=== PATIENT | male | born 1965 | race Two or more races ===

== ENCOUNTER 2023-12-17 11:33 | Inpatient (IN) | payer MEDICAID, OTHER ==
[~2023-12-17] VITALS: Ht 167.6 cm; Wt 98.3 kg
[2023-12-17 12:14] LABS: Urine Bacteria None Seen /hpf (None Seen)
[2023-12-17 12:32] LABS: Basophils # (auto) 0.1 10 ^3/uL (0-0.2); Basophils % (auto) 0.7 % (0.0-2.0); Eosinophils # (auto) 0 10 ^3/uL (0-0.8); Eosinophils % (auto) 0.4 % (0.0-7.0); Hematocrit 51.3 % (41.0-53.0); Hemoglobin 17.5 g/dL (13.5-17.5); Lymphocytes # (auto) 2.2 10 ^3/uL (0.4-5.4); Mean Corpuscular Hemoglobin 31.8 pg (28.0-32.0); Mean Corpuscular Hgb Conc. 34.2 g/dL (32.0-36.0); Mean Corpuscular Volume 93.1 fL (80.0-100.0); Monocytes # (auto) 0.5 10 ^3/uL (0-1.3); Monocytes % (auto) 4.9 % (0.0-12.0); Neutrophils # (auto) 7.3 10 ^3/uL (1.6-8.6); Red Blood Cells 5.51 10^6/uL (4.5-5.90); Red Cell Distribution Width 14.3 % (11.8-14.3); White Blood Cell 10.2 10^3/uL (4.4-10.8)
[2023-12-17 12:42] LABS: Urine Blood Negative /uL (Negative); Urine Clarity Clear (Clear); Urine Color Colorless (Yellow); Urine Protein, UAD Negative (Negative); Urine Specific Gravity 1.002 (1.001-1.035); Urine Urobilinogen Normal (Negative); Urine WBC <1 /hpf (0 - 3); Urine pH 5.5 (5.0-9.0)
[2023-12-17 12:45] LABS: INR 0.98 (0.9-1.15); Partial Thromboplastin Time 28.4 SEC (24.5-34.5); Prothrombin Time 10.4 sec (9.3-11.8)
[2023-12-17 12:49] LABS: Alanine Aminotransferase 21 U/L (7-40); Albumin 4.4 g/dL (3.2-4.8); Alkaline Phosphatase 90 U/L (46-116); Anion Gap 2 (5-15); Aspartate Aminotransferase 13 U/L (13-40); BUN/Creatinine Ratio 11.1 (10.0-20.0); Blood Urea Nitrogen 9 mg/dL (9-23); Calcium 9.4 mg/dL (8.5-10.1); Carbon Dioxide 23 mmol/L (20-30); Chloride 113 mmol/L (98-107); Glucose 122 mg/dL (74-106); Potassium 4.1 mmol/L (3.5-5.1); Sodium 138 mmol/L (136-145)
[2023-12-17 12:50] LABS: Bilirubin, Total 0.4 mg/dL (0.2-1.0); Total Protein 6.8 g/dL (5.7-8.2)
[2023-12-17 20:33] LABS: Base Excess -0.8 mmol/L (-2.0-2.0)
[2023-12-17] MEDS ORDERED: ONDANSETRON HCL 4 MG/2 ML VIAL IV PRN (22:30)
[2023-12-17] MEDS ORDERED: TEMAZEPAM 15 MG CAP PO PRN (22:30)
[2023-12-17] MEDS ORDERED: ACETAMINOPHEN 325 MG TAB PO PRN (22:30)
[2023-12-17] MEDS ORDERED: HYDROcodone-ACET 5/325MG TAB PO PRN (22:30)
[2023-12-17 22:47] LABS: Triglycerides 67 mg/dL (< 150)
[2023-12-17 22:48] LABS: LDL Cholesterol 103 mg/dL (< 100)
[2023-12-17 22:49] LABS: HDL Cholesterol 55 mg/dL (40-59)
[2023-12-17 22:50] LABS: Cholesterol 162 mg/dL (< 200)
[2023-12-18] VITALS (10 sets, daily range): BP systolic 95–137; BP diastolic 62–78; PULSE 63–86; RESP 16–20; TEMP 97.3–98.4; O2SAT 93–96
[2023-12-18 07:06] LABS: Chloride 111 mmol/L (98-107); Potassium 3.9 mmol/L (3.5-5.1); Sodium 140 mmol/L (136-145)
[2023-12-18 07:07] LABS: Anion Gap 4 (5-15); Calcium 9.3 mg/dL (8.5-10.1); Carbon Dioxide 25 mmol/L (20-30)
[2023-12-18 07:12] LABS: BUN/Creatinine Ratio 14.3 (10.0-20.0); Blood Urea Nitrogen 12 mg/dL (9-23); Glucose 119 mg/dL (74-106)
[2023-12-18] MEDS: LISINOPRIL 5 MG TAB PO SCH (10:00)
[2023-12-18] MEDS: ASPirin 81 mg TAB PO SCH (10:07)
[2023-12-18 15:48] LABS: Amphetamine Screen, Urine Neg (NEGATIVE)
[2023-12-18 15:49] LABS: Barbiturate Scree,Urine Neg (NEGATIVE); Benzodiazephine Screen, Urine Neg (NEGATIVE); Cannabinoid Screen, Urine Neg (NEGATIVE); Cocaine Screen, Urine Neg (NEGATIVE); Opiate Scree,Urine Neg (NEGATIVE); Phencyclidine Screen, Urine Neg (NEGATIVE)
[2023-12-18] MEDS: ATORVASTATIN 20 MG TAB PO SCH (21:56)
[2023-12-19] VITALS (10 sets, daily range): BP systolic 108–137; BP diastolic 51–87; PULSE 54–74; RESP 17–21; TEMP 97.5–98.1; O2SAT 91–100
[2023-12-19 07:21] LABS: Basophils # (auto) 0 10 ^3/uL (0-0.2); Basophils % (auto) 0.4 % (0.0-2.0); Eosinophils # (auto) 0.2 10 ^3/uL (0-0.8); Eosinophils % (auto) 2.3 % (0.0-7.0); Hematocrit 50.6 % (41.0-53.0); Hemoglobin 17.2 g/dL (13.5-17.5); Lymphocytes # (auto) 3.8 10 ^3/uL (0.4-5.4); Lymphocytes % (auto) 37.1 % (10.0-50.0); Mean Corpuscular Hemoglobin 31.9 pg (28.0-32.0); Monocytes # (auto) 0.6 10 ^3/uL (0-1.3); Monocytes % (auto) 6.2 % (0.0-12.0); Neutrophils # (auto) 5.6 10 ^3/uL (1.6-8.6); Nucleated Red Blood Cells % 0.2 %; Red Blood Cells 5.39 10^6/uL (4.5-5.90); Red Cell Distribution Width 14.5 % (11.8-14.3); White Blood Cell 10.4 10^3/uL (4.4-10.8)
[2023-12-19 07:32] LABS: Anion Gap 6 (5-15); Calcium 9.5 mg/dL (8.5-10.1); Carbon Dioxide 24 mmol/L (20-30); Chloride 109 mmol/L (98-107); Potassium 4.2 mmol/L (3.5-5.1); Sodium 139 mmol/L (136-145)
[2023-12-19 07:38] LABS: Glucose 121 mg/dL (74-106)
[2023-12-19 07:40] LABS: BUN/Creatinine Ratio 13.6 (10.0-20.0); Blood Urea Nitrogen 11 mg/dL (9-23)
[2023-12-19 07:45] LABS: INR 0.97 (0.9-1.15); Partial Thromboplastin Time 29.2 SEC (24.5-34.5); Prothrombin Time 10.3 sec (9.3-11.8)
[2023-12-19] MEDS ORDERED: ANGIOMAX 250 MG VIAL IV ONE (09:37)
[2023-12-19] MEDS ORDERED: HEPARIN SODIUM (PORCINE) 5000 UNITS/ML 1ML VIAL ONE (09:37)
[2023-12-19] MEDS ORDERED: VERAPAMIL 2.5MG/ML INJ 2ML VIAL IV ONE (09:37)
[2023-12-19] MEDS ORDERED: SODIUM CHL 0.9% 0 ML ONE (09:38)
[2023-12-19] MEDS ORDERED: MIDAZOLAM HCL 2MG/2ML 2ml VIAL (1mg/ml) ONE (09:38)
[2023-12-19] MEDS ORDERED: fentaNYL CITRATE 100 MCG/2 ML VL ONE (09:38)
[2023-12-19] MEDS ORDERED: LIDOCAINE 2%HCL (LOCAL ANESTH.) INJ 20ML MDV ONE (09:38)
[2023-12-19] MEDS ORDERED: IODIXANOL 320MG/ML 100ML BTL IV ONE ×2 (09:48→10:16)
[2023-12-19] MEDS ORDERED: ALBUAER3 IN (12:06)
[2023-12-19] MEDS ORDERED: METH4PAK PO (12:06)
[2023-12-19] MEDS ORDERED: AZIT-185 PO (12:06)
[2023-12-19] MEDS ORDERED: LISI-275 PO (12:06)
== END 2023-12-19 18:15 | disposition home or self-care (01) | DRG 191 ==
LOC: ER 11:37 → OVERFLOW 22:34 → CENTRAL 23:55 → TELE-CENTR 12-18 17:00
PROVIDERS: ADMIT Nurse Practitioner; ATTEND Internal Medicine
PROC: 4A023N7 Measurement of Cardiac Sampling and Pressure, Left Heart, Percutaneous Approach (ICD-10-PCS; principal; 2023-12-19)
PROC: B211YZZ Fluoroscopy of Multiple Coronary Arteries using Other Contrast (ICD-10-PCS; 2023-12-19)
DX: I24.89 Other forms of acute ischemic heart disease (principal); E78.5 Hyperlipidemia, unspecified; F17.210 Nicotine dependence, cigarettes, uncomplicated; G89.29 Other chronic pain; I10 Essential (primary) hypertension; M25.512 Pain in left shoulder; R09.02 Hypoxemia; I45.10 Unspecified right bundle-branch block; J44.89 Other specified chronic obstructive pulmonary disease; Z82.5 Family history of asthma and other chronic lower respiratory diseases; Z80.42 Family history of malignant neoplasm of prostate
CPT/HCPCS: 36415; 36600; 70450; 71045; 72125; 73030; 80048; 80053; 80061; 80307; 81001; 82805; 83735; 83880; 84484; 85025; 85379; 85610; 85730; 93005; 93306; 93458; 99152; G0378; J2250; Q9967

== ENCOUNTER 2024-10-22 23:52 | Emergency (ER) | payer MEDICAID ==
[~2024-10-22] VITALS: Ht 167.6 cm; Wt 66.4 kg
[~2024-10-22 23:52] MED LIST: ALBUAER3 IN; AZIT-185 PO; LISI-275 PO; METH4PAK PO
[2024-10-23 01:02] VITALS: TEMP 98.2; O2SAT 96
[2024-10-23 01:16] LABS: Basophils # (auto) 0.2 10 ^3/uL (0-0.2); Basophils % (auto) 1.3 % (0.0-2.0); Eosinophils # (auto) 0.1 10 ^3/uL (0-0.8); Eosinophils % (auto) 0.7 % (0.0-7.0); Hematocrit 50.3 % (41.0-53.0); Hemoglobin 16.9 g/dL (13.5-17.5); Lymphocytes # (auto) 1.9 10 ^3/uL (0.4-5.4); Lymphocytes % (auto) 11.3 % (10.0-50.0); Mean Corpuscular Hemoglobin 30.7 pg (28.0-32.0); Mean Corpuscular Hgb Conc. 33.5 g/dL (32.0-36.0); Mean Corpuscular Volume 91.8 fL (80.0-100.0); Monocytes # (auto) 0.9 10 ^3/uL (0-1.3); Monocytes % (auto) 5.4 % (0.0-12.0); Neutrophils % (auto) 81.3 % (37.0-80.0); Platelet Count (auto) 291 10^3/uL (140-450); Red Blood Cells 5.48 10^6/uL (4.5-5.90); Red Cell Distribution Width 14.2 % (11.8-14.3); White Blood Cell 17.2 10^3/uL (4.4-10.8)
[2024-10-23] MEDS: KETOROLAC TROMETH 30 MG/ML 1ML VIAL IV ONE (01:24)
[2024-10-23] MEDS: CLINDAMYCIN 900MG IV 50 ML IV ONE (01:24)
[2024-10-23] MEDS: MORPHINE SULFATE INJ 2 MG/ml SYRG IV ONE (01:25)
--- NOTE | 2024-10-23 01:27 | ED.PDOC ---
Eye-HPI HPI Comments C/C of facial swelling and tooth pain starting 10/21/24. Pt states he was suppose to have front tooth pulled d/t cavity, but never did. Pt has swelling to upper lip, and bilateral cheeks. Denies fever chills difficulty breathing difficulty swallowing. Chief Complaint: Tooth Pain Time Seen by MD: 00:02 Reviewed Notes: Nurses Notes, Medications, Allergies Allergies: Coded Allergies: NO KNOWN ALLERGIES (Unverified , 12/17/23) Home Meds Active Scripts Ibuprofen (Ibuprofen) 800 Mg Tab, 800 MG PO Q8HP PRN for 5 Days, #15 TAB Prov:ANTONETTE ALEMAN 10/23/24 Clindamycin Hcl (Clindamycin Hcl) 300 Mg Cap, 300 MG PO QID for 7 Days, #28 CAP Prov:ANTONETTE ALEMAN 10/23/24 Albuterol Sulfate (VENTOLIN MDI) 90 Mcg Ih, 90 MCG IN Q6HPRN PRN, #1 INH Prov:JN PHELAN MD 12/19/23 Methylprednisolone (Medrol Dosepak) 4 Mg Ernesto, 4 MG PO UD, #21 TAB UAD Prov:JN PHELAN MD 12/19/23 Azithromycin (ZITHROMAX TABLET) 250 Mg Tb, 250 MG PO DAILY, #6 TAB take 2 tablets the first day, then one tablet daily until finish Prov:JN PHELAN MD 12/19/23 Lisinopril (Lisinopril) 5 Mg Tab, 5 MG PO DAILY, #30 TAB 5 Refills Prov:JN PHELAN MD 12/19/23 Information Source: Patient Mode of Arrival: Ambulatory Past Medical History PAST MEDICAL HISTORY: Denies Past Medical History (Other): ALS Surgical History: Denies all surgeries Family History Family History: Reviewed,noncontributory to illness Social History Smoker: Cigarettes, Less Than 1 Pack/Day Alcohol: Denies ETOH Use Drugs: Denies Drug Use Lives In: Home Constitutional: denies: chills, diaphoresis, fatigue, fever, malaise, sweats, weakness, others EENTM: reports: mouth pain, mouth swelling; denies: blurred vision, double vi cornel, ear bleeding, ear discharge, ear drainage, ear pain, ear ringing, eye pain, eye redness, hearing loss, nasal discharge, nose bleeding, nose congestion, nose pain, photophobia, tearing, throat pain, throat swelling, voice changes, others Respiratory: denies: cough, hemoptysis, orthopnea, SOB at rest, shortness of breath, SOB with excertion, stridor, wheezing, others Cardiovascular: denies: chest pain, dizzy spells, diaphoresis, Dyspnea on exertion, edema, irregular heart beat, left arm pain, lightheadedness, palpitations, PND, syncope, others Gastrointestinal: denies: abdomen distended, abdominal pain, blood streaked bowels, constipated, diarrhea, dysphagia, difficulty swallowing, hematemesis, melena, nausea, poor appetite, poor fluid intake, rectal bleeding, rectal pain, vomiting, others Genitourinary: denies: burning, dysuria, flank pain, frequency, hematuria, incontinence, penile discharge, penile sore, pain, testicle pain, testicle swelling, urgency, others Neurological: denies: dizziness, fainting, headache, left sided numbness, left sided weakness, numbness, paresthesia, pre-existing deficit, right sided numbness, right sided weakness, seizure, speech problems, tingling, tremors, weakness, others Musculoskeletal: denies: back pain, gout, joint pain, joint swelling, muscle pain, muscle stiffness, neck pain, others Integumetry: denies: bruises, change in color, change in hair/nails, dryness, laceration, lesions, lumps, rash, wounds, others Allergic/Immunocompromised: denies: Difficulty Healing, Frequent Infections, Hives, Itching, others Hematologic/Lymphatic: denies: anemia, blood clots, easy bleeding, easy bruising, swollen glands, others Endocrine: denies: excessive hunger, excessive sweating, excessive thirst, excessive urination, flushing, intolerance to cold, intolerance to heat, un explained weight gain, unexplained weight loss, others Psychiatric: denies: anxiety, bipolar disorder, depression, hopeless, panic disorder, schizophrenia, sleepless, suicidal, others Physical Exam General Appearance: No Apparent Distress, Normal HEENT: Head (Noted upper lip swelling and right-sided facial swelling), Pharynx Normal, TMs Normal, Other (Upper tooth 12. With moderate decay) Neck: Full Range of Motion, Non-Tender Respiratory: Lungs Clear, No Respiratory Distress, Normal Breath Sounds Cardiovascular: No Edema, No JVD, No Murmur, No Gallop, Normal Peripheral Pulses, Regular Rate/Rhythm Breast Exam: Deferred Gastrointestinal: No Organomegaly, Non Tender, No Pulsatile Mass, Normal Bowel Sounds, Soft Genitalia: Deferred Pelvic: Deferred Rectal: Deferred Extremities: No calf tenderness, Normal capillary refill, Normal inspection, Normal range of motion, Non-tender, No pedal edema Musculoskeletal : Apperance: Normal Neurologic: Alert, crepe sole scourer II-XII nml as Tested, No Motor Deficits, Normal Affect, Normal Mood, No Sensory Deficits Cerebellar Function: Normal Reflexes: Normal Skin: Dry, Normal Color, Warm Lymphatic: No Adenopathy Was a procedure done? Was a procedure done?: No EENT DIFF Eye: N/A Ear: Dental, TMJ Syndrome Nose: N/A Sore Throat: Arvind's Angina X-Ray, Labs, Meds, VS Vital Signs Date Time Temp Pulse Resp B/P (MAP) Pulse Ox O2 Delivery O2 Flow Rate FiO2 10/23/24 01:55 80 19 117/69 10/23/24 01:25 93 16 124/82 10/23/24 01:02 93 16 96 Room Air 10/23/24 01:02 98.2 93 16 124/82 (96) 96 98.2 10/23/24 00:39 98.2 93 18 126/85 (99) 97 98.2 Lab Test 10/23/24 01:02 Range/Units White Blood Count 17.2 H 4.4-10.8 10^3/uL Red Blood Count 5.48 4.5-5.90 10^6/uL Hemoglobin 16.9 13.5-17.5 g/dL Hematocrit 50.3 41.0-53.0 % Mean Corpuscular Volume 91.8 80.0-100.0 fL Mean Corpuscular Hemoglobin 30.7 28.0-32.0 pg Mean Corpuscular Hemoglobin Concent 33.5 32.0-36.0 g/dL Red Cell Distribution Width 14.2 11.8-14.3 % Platelet Count 291 140-450 10^3/uL Mean Platelet Volume 7.2 6.9-10.8 fL Neutrophils (%) (Auto) 81.3 H 37.0-80.0 % Lymphocytes (%) (Auto) 11.3 10.0-50.0 % Monocytes (%) (Auto) 5.4 0.0-12.0 % Eosinophils (%) (Auto) 0.7 0.0-7.0 % Basophils (%) (Auto) 1.3 0.0-2.0 % Neutrophils # (Auto) 14.0 H 1.6-8.6 10 ^3/uL Lymphocytes # (Auto) 1.9 0.4-5.4 10 ^3/uL Monocytes # (Auto) 0.9 0-1.3 10 ^3/uL Eosinophils # (Auto) 0.1 0-0.8 10 ^3/uL Basophils # (Auto) 0.2 0-0.2 10 ^3/uL Nucleated Red Blood Cells 0.0 % Sodium Level 138 136-145 mmol/L Potassium Level 4.2 3.5-5.1 mmol/L Chloride Level 107 98-107 mmol/L Carbon Dioxide Level 25 20-31 mmol/L Anion Gap 6 5-15 Blood Urea Nitrogen 13 9-23 mg/dL Creatinine 0.90 0.700-1.30 mg/dL Glomerular Filtration Rate Calc 98 >90 mL/min BUN/Creatinine Ratio 14.4 10.0-20.0 Serum Glucose 156 H 74-106 mg/dL Calcium Level 9.4 8.7-10.4 mg/dL Total Bilirubin 0.6 0.2-1.0 mg/dL Aspartate Amino Transferase (AST) 12 L 13-40 U/L Alanine Aminotransferase (ALT) 12 7-40 U/L Alkaline Phosphatase 92 46-116 U/L Total Protein 7.1 5.7-8.2 g/dL Albumin 4.4 3.2-4.8 g/dL Current Medications Medications (Trade) Dose Ordered Sig/Erika Route Start Time Stop Time Status Last Admin Clindamycin Phosphate 50 ml @ 50 mls/hr ONCE ONCE IV 10/23/24 01:00 10/23/24 01:59 DC 10/23/24 01:24 Morphine Sulfate 1 mg ONCE ONCE IV 10/23/24 01:00 10/23/24 01:01 DC 10/23/24 01:25 Ketorolac Tromethamine (Toradol Injection) 30 mg ONCE ONCE IV 10/23/24 01:00 10/23/24 01:01 DC 10/23/24 01:24 X-Ray, Labs, Meds, VS Comment CT maxillofacial IMPRESSION: Left nasal bone fracture of unknown chronicity. Subcutaneous soft tissue fat stranding adjacent to the left mandible. Orthodontic hardware in the left lower jaw teeth limits evaluation due to streaking artifact. Findings are most likely secondary to a odontogenic infection in the left lower jaw with adjacent soft tissue cellulitis or phlegmon. No focal fluid collection to suggest abscess. Prominent subcentimeter submandibular lymphadenopathy noted, most likely reactive. CBC, WBC 02694 reactive to dental infection. CMP within normal limits Medications: Clindamycin 900 IV piggyback Toradol 30 mg IV push Morphine 1 mg IV push [place] 5 mg p.o. upon discharge Hurricaine spray upon discharge Patient afebrile. Script outpatient antibiotics clindamycin 300 mg every 6 hours x7 days. Ibuprofen 800 mg t.i.d. p.r.n. pain. Hurricaine spray as needed for pain. Patient was advised to take medications as prescribed side effects discussed. Advised patient to call dental and make an appointment for resolution. Advised to follow up with his PCP in 2-3 days consider repeat WBC for leukocytosis once infection resolved. Advised patient on ER return precautions patient indicates understanding and agrees with discharge plan of care. Time of 1ST Reevaluation: 01:48 Reevaluation 1ST: Unchanged Time of 2ND Reevaluation: 02:26 Reevaluation 2ND: Improved Patient Education/Counseling: Diagnosis, Treatment, Prognosis, Need For Follow Up Family Education/Counseling: No Family Present Departure 1 Departure Time of Disposition: 02:26 Impression: Primary Impression: Dental infection Disposition: 01 HOME / SELF CARE / HOMELESS Condition: Stable e-Prescriptions Ibuprofen (Ibuprofen) 800 Mg Tab 800 MG PO Q8HP PRN for 5 Days, #15 TAB Prov: ANTONETTE ALEMAN 10/23/24 Clindamycin Hcl (Clindamycin Hcl) 300 Mg Cap 300 MG PO QID for 7 Days, #28 CAP Prov: ANTONETTE ALEMAN 10/23/24 Discharged With: Spouse Critical Care Note Critical Care Time?: No Stability Stability form required: ANTONETTE Guido Oct 23, 2024 01:27
[2024-10-23 01:32] LABS: Alanine Aminotransferase 12 U/L (7-40); Albumin 4.4 g/dL (3.2-4.8); Alkaline Phosphatase 92 U/L (46-116); Anion Gap 6 (5-15); Aspartate Aminotransferase 12 U/L (13-40); BUN/Creatinine Ratio 14.4 (10.0-20.0); Bilirubin, Total 0.6 mg/dL (0.2-1.0); Blood Urea Nitrogen 13 mg/dL (9-23); Calcium 9.4 mg/dL (8.7-10.4); Carbon Dioxide 25 mmol/L (20-31); Chloride 107 mmol/L (98-107); Glucose 156 mg/dL (74-106); Potassium 4.2 mmol/L (3.5-5.1); Sodium 138 mmol/L (136-145); Total Protein 7.1 g/dL (5.7-8.2)
[2024-10-23 01:55] VITALS: BP 117/69; PULSE 80; RESP 19
--- NOTE | 2024-10-23 02:06 | DVH ---
HISTORY: facial swelling, dental pain TECHNIQUE: Nonenhanced axial images through the facial bones with coronal and sagittal MPR. Radiation Dose Information: CT Dose: CTDI volume is 64 mGy. Dose-length product is 1323 mGy*cm COMPARISON: None Findings/ IMPRESSION: Left nasal bone fracture of unknown chronicity. Subcutaneous soft tissue fat stranding adjacent to the left mandible. Orthodontic hardware in the lef t lower jaw teeth limits evaluation due to streaking artifact. Findings are most likely secondary to a odontogenic infection in the left lower jaw with adjacent soft tissue cellulitis or phlegmon. No fo erika fluid collection to suggest abscess. Prominent subcentimeter submandibular lymphadenopathy noted, most likely reactive. Radiation optimization: All CT scans at this facility use at least one of these dose optimization kalpana hniques: automated exposure control mA and/or kV adjustment per patient size (includes targeted exam s where dose is matched to clinical indication) or iterative reconstruction.
[2024-10-23] MEDS ORDERED: IBUP-1456 PO (02:32)
[2024-10-23] MEDS ORDERED: CLIN1CAP70 PO (02:32)
[2024-10-23] MEDS: HYDROcodone-ACET 5/325MG TAB PO ONE (02:50)
[2024-10-23] MEDS: BENZOCAINE (DENTAL) 20 % SPRAY 60ML MT ONE (02:50)
== END 2024-10-23 03:12 | disposition home or self-care (01) ==
LOC: ER 23:52
DX: K04.7 Periapical abscess without sinus (principal); F17.210 Nicotine dependence, cigarettes, uncomplicated; Z79.1 Long term (current) use of non-steroidal anti-inflammatories (NSAID); Z79.899 Other long term (current) drug therapy
CPT/HCPCS: 36415; 70486; 80053; 85025; 96365; 96375; 99285; J1885; J2270; J3490